=== PATIENT | male | born 1935 | race Caucasian/White ===

== ENCOUNTER 2019-07-21 11:23 | Emergency (ER) | payer MEDICARE, SELFPAY ==
[2019-07-21] VITALS (11 sets, daily range): BP systolic 107–146; BP diastolic 58–70; PULSE 74–102; RESP 15–22; TEMP 36.4–36.6; O2SAT 95–100
--- NOTE | ~2019-07-21 | XR_ITS ---
EXAMINATION: XR abdomen NG/feed tube insert EXAM DATE: 07/21/2019 14:37 INDICATION: Nasogastric tube placement. TECHNIQUE: Frontal projection(s) of the abdomen for interpretation. There is no prior study for seth posada. FINDINGS: Feeding tube tip and side-port project over gastric cardial region, adequate. There is exp ected amount of colonic stool and gas. No small bowel dilation, nonobstructive bowel gas pattern. There are no suspicious calcifications identified. There is no organomegaly suspected. Moderate l umbar spondylosis. IMPRESSION: Feeding tube in position. Reviewed, dictated and finalized at location A. IMPRESSION: Feeding tube in position.
--- NOTE | ~2019-07-21 | XR_ITS ---
EXAMINATION: XR chest ET placement EXAM DATE: 07/21/2019 14:37 INDICATION: Submandibular, masseter emphysema suspicious for necrotizing fasciitis. Left pharyngeal e alberto. TECHNIQUE: Portable AP frontal chest x-ray was obtained. Comparison is made to prior examination from earlier same date. FINDINGS: Endotracheal tube tip is 4 centimeters above the delvis (ideal range is between 2 to 5 cm). There is a nasogastric tube seen with tip collimated off the study, but below the left hemidiaphrag m. No confluent consolidation or pneumothorax. Mild cardiomegaly and pulmonary vascular congestion. Nat nary artery stent. Possible small left pleural effusion. There is no pneumothorax suspected. The re are bony degenerative changes. IMPRESSION: 1. ET, NG tube in position. 2. Cardiomegaly, congestive changes. 3. Possible small left effusion. Reviewed, dictated and finalized at location A.
--- NOTE | ~2019-07-21 | XR_ITS ---
EXAMINATION: XR chest 1V portable EXAM DATE: 07/21/2019 12:10 INDICATION: Cough. TECHNIQUE: Frontal and lateral projections of the chest obtained and reviewed. Comparison is made to prior examination from 03/01/2010. FINDINGS: Chondral cartilage calcification. There is aortic arterial sclerosis. The lungs are clear. There are no pleural effusions. The cardiomediastinal silhouette is within normal limits. There i s no pneumothorax suspected. The bones are osteopenic. There are bony degenerative changes. There m ay be a left-sided cardiac stent. IMPRESSION: No acute cardiopulmonary findings. Reviewed, dictated and finalized at location A.
--- NOTE | ~2019-07-21 | CT_ITS ---
EXAMINATION: CT soft tissue neck wo con EXAM DATE: 07/21/2019 12:47 INDICATION: Sore throat, cough. Soto's angina. TECHNIQUE: Spiral CT of the neck was performed without contrast. Axial, coronal and sagittal images were reviewed. The dose-length product (DLP) for this examination was 477.69 mGy-cm. The exposure was tailored according to patient size (auto mA exposure control), and iterative reconstruction (ASIR ) was used as additional dose reduction technique. There is no prior study for comparison. FINDINGS: There is edema, swelling along the floor of the mouth, with abscess along the right mandibu lar body inferomedial aspect measuring about 1 x 3 cm, air-fluid level. Multiple foci of extraluminal gas scattered within the fascial planes in the submandibular space partially surrounding the anterio r belly of the right digastric. Also edema, multiple foci of gas, phlegmonous necrotic appearance in the right masseter muscle. Inflammation surrounding the left submandibular gland, left tonsillar lily a and inflammation in the left parapharyngeal fat plane, mild airway mass effect on the left side. Th ere is edema narrowing the left vallecula and to a lesser extent piriform sinus. Epiglottis appears n ormal in thickness. Airway is not significantly compromised at present but patient needs treatment, to be kept under observation. Prevertebral soft tissues are normal in thickness. Cervical spondylosis . Opacified left maxillary sinus with wall thickening, probably chronic. IMPRESSION: 1. Abscess adjacent to right mandibular body. 2. Gas within the submandibular space, right masseter muscle suspicious for necrotizing fasciitis. 3. Extensive inflammation surrounding left submandibular gland, inflammation of left parapharyngeal f at extending down to the level of the vallecula and to a lesser extent pyriform sinus. I discussed these findings with Dr. Stanford Curiel MD at 07/21/2019 13:05 CDT. Recommend ENT co nsult, close observation. Reviewed, dictated and finalized at location A. IMPRESSION: 1. Abscess adjacent to right mandibular body. 2. Gas within the submandibular space, right masseter muscle suspicious for nec rotizing fasciitis. 3. Extensive inflammation surrounding left submandibular gland, inflammation of left parapharyngeal fat extending down to the level of the vallecula and to a lesser extent pyriform sinus. I discussed these findings with Dr. Stanford Curiel MD at 07/21/2019 13:05 CDT. Recommend ENT consult, close observation.
--- NOTE | 2019-07-21 11:47 | ED.SOB ---
HPI - SOB/Dyspnea General Chief Complaint: Shortness of Breath/Dyspnea Stated Complaint: sore throat,cough,congestion Time Seen by Provider: 07/21/19 11:42 Source: patient and RN notes reviewed Mode of arrival: ambulatory Limitations: no limitations History of Present Illness HPI Narrative: Pt is an 83 y/o male presenting to the ED c/o dysphagia. Pt reports he has been experiencing dysphagia last Sunday that has gradually worsened. Pt states his dysphagia is not alleviated when leaning forward. Pt also reports SOB, chills, cough, and wheezing, but denies fever. Pt's daughter at bedside reports the pt has a Hx of dental probelsm and cardiac stent. Per daughter, they called their PCP last night. Pt states he does not have any known positive sick contact. Pertinent past history: other (Dental problems; Cardiac stent) Onset (ago): day(s) (3) Associated symptoms: cough, wheezing and other (SOB; chills) Related Data Home Medications Medication Instructions Recorded Confirmed amlodipine 5 mg PO HS 04/23/19 04/23/19 clopidogrel [Plavix] 75 mg PO HS 04/23/19 04/23/19 isosorbide mononitrate 30 mg PO HS 04/23/19 04/23/19 lisinopril 40 mg PO HS 04/23/19 04/23/19 metformin 500 mg PO DAILY 04/23/19 04/23/19 metoprolol tartrate 12.5 mg PO BID 04/23/19 04/23/19 rosuvastatin 40 mg PO HS 04/23/19 04/23/19 warfarin See Rx Instructions .ROUTE .COMPLEX 04/23/19 04/23/19 Allergies Allergy/AdvReac Type Severity Reaction Status Date / Time Penicillins Allergy Mild Rash Verified 07/21/19 11:48 STATINS Allergy Unknown MYALGIAS Uncoded 04/23/19 14:47 Review of Systems Review of Systems: All systems reviewed & are unremarkable except as noted in HPI and below Constitutional: Constitutional: Reports chills and Denies fever(s) ENT: Reports dysphagia Respiratory: Respiratory: Reports cough, Reports dyspnea and Reports wheezing PMFSH Past Medical History Medical History (Updated 07/21/19 @ 11:59 by Jah Gomes) CVA (cerebral vascular accident) GI bleed HTN (hypertension) Kidney stone Myocardial infarction Skin cancer Ulcer Surgical History Surgical History (Updated 07/21/19 @ 11:59 by Jah Gomes) H/O heart artery stent H/O left knee surgery H/O Spinal surgery x2 History of appendectomy History of tonsillectomy Family History Family History Other Cerebrovascular accident Family history of arthritis Family history of cardiovascular disease Family history of gout Family history of kidney disease Hypertension Social History Social History Smoking status: Never smoker Alcohol intake: current Gender identity (if verbalized by the patient): Male Exam Const: General: no acute distress, alert and ill appearing acutely and chronically Orientation/consciousness: patient oriented x3 HENMT: Other: swelling and firmness to sublingual area. Diffuse odontogenic disease with purulent drainage from multiple teeth. No stridor. mild trismus. limited tongue protrusion. Resp: Effort & Inspection: normal respiratory effort Auscultation: clear to auscultation bilaterally Cardio: Rhythm: abnormal rhythm irregularly irregular GI: GI Palp: Yes Soft to palpation and No Tenderness to palpation present (GI) Skin: General skin exam: normal color Neuro: General: patient oriented x3 and moves all extremities Speech: Abnormal speech present other (muffled speech) Extrem: General: normal to inspection Psych: Attitude: cooperative Course Vital Signs Vital signs: Vital Signs Temperature 36.4 C 07/21/19 11:42 Pulse Rate 100 07/21/19 11:42 Respiratory Rate 18 07/21/19 11:42 Pulse Oximetry 96 07/21/19 11:42 Temperature 36.4 C 07/21/19 11:42 Pulse Rate 102 H 07/21/19 14:36 Respiratory Rate 22 H 07/21/19 14:36 Blood Pressure 146/68 H 07/21/19 14:36 Pulse Oximetry 100 07/21/19 14:36 Procedures Intubation In
[2019-07-21 12:00] LABS: Basophils Percent Auto 0.3 % (0.2-1.2); Hematocrit 36.6 % (42.0-52.0); Hemoglobin 11.6 g/dL (14.0-18.0); Immature Granulocyte Absolute 0.05 K/mm3 (0.00-0.031); Immature Granulocyte Percent A 0.4 % (0-0.5); Lymphocytes Absolute Auto 0.64 K/mm3 (0.9-3.2); Lymphocytes Percent Auto 4.9 % (18.3-44.2); Mean Corpuscular HGB Conc 31.7 g/dl (32-36); Mean Corpuscular Hemoglobin 29.5 pg (26-34); Mean Corpuscular Volume 93.1 fl (80-100); Mean Platelet Volume 9.3 fl (7.4-10.4); Monocytes Absolute Auto 0.9 K/mm3 (0.1-0.6); Monocytes Percent Auto 6.7 % (2.6-8.5); Neutrophils Absolute Auto 11.5 K/mm3 (1.3-6.7); Neutrophils Percent Auto 87.7 % (45.5-73.1); Platelet Count Result 277 k/mm3 (150-375); Red Blood Count 3.93 M/mm3 (4.6-6.20); Red Cell Distribution Width 14.4 % (11.5-14.5); White Blood Count 13.1 K/mm3 (4.5-10.0)
[2019-07-21] MEDS: CLINDAMYCIN 600 MG/NS 50 ML 600 MG/50 ML PIGGYBACK 100 MG IVPB (12:11)
[2019-07-21 12:16] LABS: Alanine Aminotransferase 21 U/L (4-50); Albumin Level 3.3 g/dL (3.5-5.1); Alkaline Phosphatase 88 U/L (38-126); Aspartate Amino Transferase 39 U/L (17-59); Bilirubin,Total 0.7 mg/dL (0.2-1.3); Blood Urea Nitrogen 68 mg/dL (9-20); Calcium 8.9 mg/dL (8.4-10.2); Carbon Dioxide 17 mmol/L (22-30); Chloride 113 mmol/L (98-107); Estimated CRCL calculation 11 ml/min; Estimated Glomerular Filt Rate 14; Glucose 139 mg/dL (75-110); Potassium 4.8 mmol/L (3.4-5.0); Sodium 143 mmol/L (137-145)
[2019-07-21 12:17] LABS: Prothrombin Time 52.9 Seconds (11.1-14.7)
[2019-07-21 12:18] LABS: Partial Thromboplastin Time 76.8 SECONDS (22.3-36.8)
[2019-07-21 12:31] LABS: Lactic Acid Reflex 2.8 mmol/L (0.7-2.1)
--- NOTE | 2019-07-21 13:42 | PC.NURSE ---
SPOKE WITH ZAHEER AT THIS TIME, GAVE PT INFORMATION, AWAITING ROOM ASSIGNMENT.
[2019-07-21] MEDS: PROPOFOL IV EMULSION 100 ML 2.3 MG IV CONT (14:34)
[2019-07-21] MEDS: RAPID SEQUENCE INTUBATION KIT 1 EACH (14:36)
--- NOTE | 2019-07-21 14:40 | PC.NURSE ---
PT BUCKING TUBE, RATE INCREASED TO 10MCG/KG/MIN
[2019-07-21] MEDS: PHYTONADIONE INJ 10 MG/ML AMP IM (14:42)
--- NOTE | 2019-07-21 14:46 | PC.NURSE ---
1420 ERP GERDELMAN AND RESPIRATORY AT BEDSIDE AT THIS TIME TO INTUBATE PT. 88HR 15 RR 98%O2 RA 135/60 20MG ETOMIDATE AND 100 MG SUCCINIOCHOLINE GIVEN IVP PER ERP 8MM TUBE USED WITH GLIDESCOPE, 26@LIP XRAY OBTAINED POST INTUBATION, PT TOLERATED PROCEDURE WELL COMPLETE AT 1425 VS: 88 100% O2 16 RR 131/62
--- NOTE | 2019-07-21 14:52 | PC.NURSE ---
PT RESTLESS, BUCKING TUBE, RATE INCREASED PER PROTOCOL TO 15 MCG/KG/MIN
--- NOTE | 2019-07-21 15:13 | PC.NURSE ---
report given to LILA landa at this time at [phone] [place] [address].
[2019-07-21 15:17] LABS: Reflex Lactic Acid Yes or No Add Lactic
[2019-07-21] MEDS: SODIUM CHLORIDE 0.9% IV 1,000 ML 999 ML IV CONT (15:42)
[2019-07-21 15:54] LABS: Lactic Acid 2.6 mmol/L (0.7-2.1)
--- NOTE | 2019-07-21 16:16 | PC.NURSE ---
DUE TO LONG WAIT TIMES THOMAS GOLDBERG STATES THAT HE WANTS PT FLOWN TO [facility]. [facility] ON PHONE WITH [facility] AT THIS TIME. 8 MINUTE ETA.
== END 2019-07-21 16:45 | disposition short-term general hospital (02) ==
PROVIDERS: Emergency Provider Emergency Medicine; PCP Family Medicine Adolescent Medicine
DX: M72.6 Necrotizing fasciitis (principal); Z86.73 Personal history of transient ischemic attack (TIA), and cerebral infarction without residual deficits; I10 Essential (primary) hypertension; Z87.442 Personal history of urinary calculi; I25.2 Old myocardial infarction; Z85.828 Personal history of other malignant neoplasm of skin; Z95.5 Presence of coronary angioplasty implant and graft; R06.02 Shortness of breath
CPT/HCPCS: 31500; 36415; 70490; 71045; 80053; 83605; 85025; 85610; 85730; 87040; 87076; 87077; 87186; 87804; 96361; 96365; 96367; 96368; 96372; 99291; J0330; J1956; J2704; J3370; J3430; J7030

== ENCOUNTER 2020-11-26 17:10 | Emergency (ER) | payer OTHER, MEDICARE, SELFPAY ==
[2020-11-26 17:10] VITALS: BP 151/70; PULSE 49; RESP 16; TEMP 36.3; O2SAT 98
--- NOTE | 2020-11-26 18:24 | ED.MALEGU ---
HPI - Male Genitourinary General Chief complaint: Urogenital-Male Stated complaint: hopsice - cook placement Time Seen by Provider: 11/26/20 17:43 Source: patient and old records reviewed Mode of arrival: EMS Limitations: no limitations History of Present Illness HPI Narrative: Patient is 85 years old white male, hospice brought to the emergency room because urinary retention for the last 18 hours, patient was able to urinate prior to arrival to the emergency room. Hospice visiting nurse could not catheterize the patient after 2 trials. Patient sent to the emergency room for catheterization. Patient is asymptomatic at this time. Is awake, alert and oriented to his name age and situation. Denying any abdominal pain, fever, chills, nausea, vomiting complaining of difficulty urination lately. Related Data Home Medications Medication Instructions Recorded Confirmed metoprolol tartrate 12.5 mg PO BID 04/23/19 Allergies Allergy/AdvReac Type Severity Reaction Status Date / Time Penicillins Allergy Mild Rash Verified 11/26/20 17:26 STATINS Allergy Unknown MYALGIAS Uncoded 11/26/20 17:26 Review of Systems Review of Systems: Narrative: CONSTITUTIONAL: Denies fever, chills, or sweats. EYES: Denies visual changes, redness, or discharge. ENT: Denies rhinorrhea, congestion, sore throat, or otalgia. CARDIOVASCULAR: Denies chest pain, palpitations, or edema. RESPIRATORY: Denies cough or dyspnea. GASTROINTESTINAL: Denies abdominal pain, nausea, vomiting, or diarrhea. GENITOURINARY: Dysuria and trouble urinating. SKIN: Denies rash or itching. MUSCULOSKELETAL: Denies back pain, joint pain, or myalgia., Right above-knee amputation, gangrenous changes of the left toes NEUROLOGIC: Denies headache, numbness, or weakness. PSYCHIATRIC: Denies anxiety or depression. [facility] Past Medical History Medical History CVA (cerebral vascular accident) GI bleed HTN (hypertension) Kidney stone Myocardial infarction Skin cancer Ulcer Surgical History Surgical History H/O heart artery stent H/O left knee surgery H/O Spinal surgery x2 History of appendectomy History of tonsillectomy Family History Family History Other Cerebrovascular accident Family history of arthritis Family history of cardiovascular disease Family history of gout Family history of kidney disease Hypertension Social History Social History Smoking status: Never smoker Alcohol intake: current Gender identity (if verbalized by the patient): Male Exam Narrative: Exam Narrative: General appearance: Well-developed, well-nourished Skin: Normal color Head: Normocephalic, nontraumatic Eyes: Clear conjunctiva ENT: Oropharynx normal, ears normal, nose normal Neck: Supple, nontender Chest and respiratory: Airway patent, no respiratory distress, no accessory muscle use Heart: Regular rate/rhythm Abdomen: Soft, nontender, no organomegaly, quiet bowel sounds Vascular: Normal peripheral pulses, normal capillary refill. Musculoskeletal: Right above-knee amputation, gangrenous changes of the left toes Neurologic: Alert and oriented ?3, Course Course Emergency Course: Stable Vital Signs Vital signs: Vital Signs Temperature 36.3 C L 11/26/20 17:10 Pulse Rate 49 L 11/26/20 17:10 Respiratory Rate 16 11/26/20 17:10 Blood Pressure 151/70 H 11/26/20 17:10 Pulse Oximetry 98 11/26/20 17:10 Temperature 36.3 C L 11/26/20 17:10 Pulse Rate 51 L 11/26/20 18:33 Resp
[2020-11-26 18:33] VITALS: BP 137/54; PULSE 51; RESP 13; O2SAT 100
[2020-11-26 18:52] LABS: Basophils Percent Auto 0.5 % (0.2-1.2); Eosinophils Absolute Auto 0.4 K/mm3 (0-0.3); Eosinophils Percent Auto 6.1 % (0-4.4); Hematocrit 31.6 % (42.0-52.0); Hemoglobin 9.5 g/dL (14.0-18.0); Immature Granulocyte Absolute 0.03 K/mm3 (0.00-0.031); Immature Granulocyte Percent A 0.5 % (0-0.5); Lymphocytes Absolute Auto 1.43 K/mm3 (0.9-3.2); Lymphocytes Percent Auto 24.8 % (18.3-44.2); Mean Corpuscular HGB Conc 30.1 g/dl (32-36); Mean Corpuscular Hemoglobin 28.2 pg (26-34); Mean Corpuscular Volume 93.8 fl (80-100); Mean Platelet Volume 8.6 fl (7.4-10.4); Monocytes Absolute Auto 0.7 K/mm3 (0.1-0.6); Monocytes Percent Auto 11.5 % (2.6-8.5); Neutrophils Absolute Auto 3.3 K/mm3 (1.3-6.7); Neutrophils Percent Auto 56.6 % (45.5-73.1); Platelet Count Result 268 k/mm3 (150-375); Red Blood Count 3.37 M/mm3 (4.6-6.20); Red Cell Distribution Width 17.7 % (11.5-14.5); White Blood Count 5.8 K/mm3 (4.5-10.0)
[2020-11-26 19:05] LABS: Alanine Aminotransferase 7 U/L (4-50); Albumin Level 3.2 g/dL (3.5-5.1); Alkaline Phosphatase 93 U/L (38-126); Anion Gap 9 mmol/L (8-16); Aspartate Amino Transferase 15 U/L (17-59); Bilirubin,Total 0.3 mg/dL (0.2-1.3); Blood Urea Nitrogen 45 mg/dL (9-20); Calcium 8.5 mg/dL (8.4-10.2); Carbon Dioxide 22 mmol/L (22-30); Chloride 104 mmol/L (98-107); Estimated CRCL calculation 15 ml/min; Estimated Glomerular Filt Rate 20; Glucose 116 mg/dL (65-110); Potassium 5.4 mmol/L (3.4-5.0); Sodium 135 mmol/L (137-145)
[2020-11-26 19:32] LABS: Add Urine Microscopic? YES; Appearance Urine Clear (Clear); Bacteria Urine Trace /hpf; Bilirubin Urine Negative (Negative); Blood Urine Negative (Negative); Color Urine Yellow (Yellow); Glucose Urine UA Negative (Negative); Ketones Urine Negative (Negative); Leukocyte Esterase Ur Trace LEU/UL (Negative); Nitrate Urine Negative (Negative); Protein Urine 2+ mg/dL (Negative); RBC Urine 0-2 /hpf (0-2); Specific Grav Ur 1.014 (1.001-1.035); Urobilinogen Urine Negative mg/dL (<2.0)
[2020-11-26 20:48] VITALS: BP 159/71; PULSE 57; RESP 17; O2SAT 98
[2020-11-26] MEDS: ONDANSETRON HCL ODT 4 MG TABLET 8 MG (21:11)
--- NOTE | 2020-11-26 21:11 | PC.NURSE ---
Pt sat up and vomited a large amount. EDP notified and 8mg zofran ordered VORB by Dr. Sosa
--- NOTE | 2020-11-26 21:29 | PC.NURSE ---
Addendum entered by Heidi Celaya 11/26/20 22:12: 2124: Called [facility]...no ETA... (arrived at 2209) Cancelled Rubin at 2210 Original Note: Called [facility] for return transport to home...ETA approximately 2330. 2127: Rubin called with updated status...ETA 0030 (call volume exceeds availability) 2116: Called [facility]...declined
--- NOTE | 2020-11-26 21:45 | PC.NURSE ---
Per community affairs manager, EMS will arrive at approx 0030
== END 2020-11-26 22:30 | disposition hospice, home (50) ==
PROVIDERS: Emergency Provider Emergency Medicine
DX: R33.9 Retention of urine, unspecified (principal); Z86.73 Personal history of transient ischemic attack (TIA), and cerebral infarction without residual deficits; I10 Essential (primary) hypertension; I25.2 Old myocardial infarction; Z87.442 Personal history of urinary calculi; Z85.828 Personal history of other malignant neoplasm of skin; Z95.5 Presence of coronary angioplasty implant and graft
CPT/HCPCS: 36415; 80053; 81001; 85025; 87086; 99283; A9270